=== PATIENT | male | born 1970 | race African-American/Black ===

== ENCOUNTER 2017-10-17 12:13 | Emergency (ER) | payer OTHER ==
[~2017-10-17] VITALS: Ht 172.7 cm; Wt 90.7 kg
--- NOTE | 2017-10-17 12:50 | NUR ---
RADIOLOGY AT BEDSIDE FOR CHEST XRAY.
[2017-10-17] MEDS ORDERED: HYDROCODONE/APAP 5/325MG 1 EACH TABLET PO ONE (13:00)
[2017-10-17] MEDS ORDERED: IBUPROFEN 400 MG TABLET PO ONE (13:00)
[2017-10-17] MEDS ORDERED: ONDANSETRON 4 MG TAB.RAPDIS SL ONE (13:30)
[2017-10-17] MEDS ORDERED: MORPHINE SULFATE INJ 2 MG/ML DISP.SYRIN IM ONE (13:30)
[2017-10-17] MEDS ORDERED: ONDANSETRON 4 MG TAB.RAPDIS ONE (13:40)
[2017-10-17] MEDS ORDERED: MORPHINE SULFATE INJ 4 MG/ML DISP.SYRIN ONE (13:40)
[2017-10-17 13:50] VITALS: BP 138/75
--- NOTE | 2017-10-17 13:50 | NUR ---
PT D/C HOME IN STABLE CONDITION.
== END 2017-10-17 14:39 | disposition home or self-care (01) ==
LOC: ER 12:16
DX: R07.89 Other chest pain (principal); I10 Essential (primary) hypertension; F17.200 Nicotine dependence, unspecified, uncomplicated
CPT/HCPCS: 71045; 96372; 99283; A4606; J2270; Q0162; Z7610